=== PATIENT | female | born 1930 | race Caucasian/White ===

== ENCOUNTER 2017-07-30 15:08 | Emergency (ER) | payer OTHER ==
[~2017-07-30] VITALS: Ht 165.1 cm; Wt 50.0 kg
[~2017-07-30 15:08] MED LIST: MECL-62 PO; NAPR-22 PO; NAPR250T57 PO
[2017-07-30 15:29] VITALS: BP 164/85; PULSE 99; RESP 16; TEMP 98.8; O2SAT 100
--- NOTE | 2017-07-30 15:48 | PD ---
HPI Chief Complaint: Fall Time Seen by Provider: 15:32 Travel History International Travel<30 days: No Contact w/Intl Traveler<30days: No Traveled to known affect area: No History of Present Illness HPI History of present illness and physical exam are limited secondary to patient being uncooperative and unable to contact family with patient information. 87- year-old female presents via EMS after falling at [employer]; unknown how she fell. Patient has history of Alzheimer's. She lives with her son. The patient is being uncooperative and answering "I don't care" when I ask her questions. She is agitated and doesn't want to be here in the hospital. She wants to leave. She is alert, but not oriented to place or time. The patient will not allow me to do a physical exam. She tells me not to touch her and to hurry up and leave the room. I tried calling her son that she lives with and he is not answering the phone. I did leave a message. I called her son that lives out of state and he has been trying to contact his brother and has been unsuccessful. HPI limited and unable to be obtained. [facility] Past Medical History Medical History: Unable to Obtain Tetanus Vaccination: Unknown Influenza Vaccination: No ?: Not Past Surgical History Surgical History: Unable to Obtain Social History Alcohol Use: No Tobacco Use: No Substance Use: No Allergies-Medications (Allergen,Severity, Reaction): Coded Allergies: levofloxacin (Unverified Allergy, Severe, 07/30/17) ALL ANTIBIOTICS Uncoded Allergies: ALL ANTIBIOTICS (Allergy, Unknown, 05/10/03) Reported Meds & Prescriptions Reported Meds & Active Scripts Active Review of Systems ROS Limitations: Uncooperative, Refused, Hearing Impaired Except as stated in HPI: all other systems reviewed are Neg Physical Exam Exam Limitations: Uncooperative, Refused Narrative Patient refusing physical exam and tells me not to touch her and to get out of the room: Physical exam done by observation. GENERAL: Well-nourished, well-developed elderly, Ethiopian female patient, in no acute distress; [facility] SKIN: Warm and dry. Abrasion noted to left knee. Approximately 1-1/2 cm chin laceration; bleeding controlled. HEAD: Atraumatic. Normocephalic. EYES: Pupils equal and round No scleral icterus. No injection or drainage. ENT: Mucosa pink and moist. Airway patent. NECK: Trachea midline. CARDIOVASCULAR: Regular rate. RESPIRATORY: No accessory muscle use. GASTROINTESTINAL: Rounded. MUSCULOSKELETAL: Left knee with full range of motion; no obvious deformity. Patient ambulating in the room and hallway without difficulty. No obvious deformities. No clubbing. No cyanosis. No edema. NEUROLOGICAL: Awake and alert. Not oriented. Agitated. No obvious cranial nerve deficits. Motor grossly within normal limits. Normal speech. PSYCHIATRIC: Appropriate mood and affect; insight and judgment normal. Data Data Last Documented VS Vital Signs Date Time Temp Pulse Resp B/P (MAP) Pulse Ox O2 Delivery O2 Flow Rate FiO2 07/30/17 15:29 98.8 99 16 164/85 (111) [address] Brain W/O Iv Contrast(Rout) (07/30/17 ) Knee, Complete (4vws) (07/30/17 15:54) Basic Metabolic Panel (Bmp) (07/30/17 16:14) Complete Blood Count With Diff (07/30/17 16:14) Iv Access Insert/Monitor (07/30/17 16:14) Lidocaine 1% Inj (50 Ml) (Xylocaine 1% I (07/30/17 16:15) Haloperidol Inj (Haldol Inj) (07/30/17 17:15) Restraints Non-Violent RAFA.Q3H (07/30/17 17:42) Lorazepam Inj (Ativan Inj) (07/30/17 18:15) Labs Laboratory Tests Test 07/30/17 16:30 White Blood Count 6.8 TH/MM3 Red Blood Count 4.25 MIL/MM3 Hemoglobin 12.1 GM/DL Hematocrit 36.2 % Mean Corpuscular Volume 85.0 FL Mean Corpuscular Hemoglobin 28.4 PG Mean Corpuscular Hemoglobin Concent 33.4 % Red Cell Distribution Width 14.1 % Platelet Count 265 TH/MM3 Mean Platelet Volume 8.4 FL Neutrophils (%) (Auto) 63.7 % Lymphocytes (%) (Auto) 23.7 % Monocytes (%) (Auto) 10.7 % Eosinophils (%) (Auto) 1.3 % Basophils (%) (Auto) 0.6 % Neutrophils # (Auto) 4.3 TH/MM3 Lymphocytes # (Auto) 1.6 TH/MM3 Monocytes # (Auto) 0.7 TH/MM3 Eosinophils # (Auto) 0.1 TH/MM3 Basophils # (Auto) 0.0 TH/MM3 CBC Comment DIFF FINAL Differential Comment Blood Urea Nitrogen 18 MG/DL Creatinine 0.79 MG/DL Random Glucose 87 MG/DL Calcium Level 8.8 MG/DL Sodium Level 141 MEQ/L Potassium Level 3.9 MEQ/L Chloride Level 108 MEQ/L Carbon Dioxide Level 27.0 MEQ/L Anion Gap 6 MEQ/L Estimat Glomerular Filtration Rate 69 ML/MIN MDM Medical Decision Making Medical Screen Exam Complete: Yes Emergency Medical Condition: Yes Medical Record Reviewed: Yes Differential Diagnosis Fall, laceration, abrasion, patellar fracture, medical clearance Narrative Course 87-year-old female presents via EMS after fall. The patient has history of Alzheimer's and history of present illness and physical exam are limited secondary to patient being uncooperative and refusing care. No family at bedside. CT head, CBC, BMP, left knee x-ray ordered. 1706: Head CT concludes: No acute intracranial process. 1709: 2 attempts to get in touch with the son the patient lives with has been unsuccessful. I have left one message and had no return phone call. The nurse has also tried calling twice. I called her other son who lives in [place] and he has had multiple attempts text messaging and calling to get a hold of the son she lives with and he has been unsuccessful also. Her son in [place] has given verbal authorization to continue care as needed and to give medication to calm her down as needed. 1720: Patient is being disruptive and is trying to leave. There is concern of harm to herself. The patient is not competent or oriented to make medical decisions for herself. Dr. Gauthier recommended Haldol 5 mg. Haldol ordered. 1742: Patient continues to be disruptive, not following instructions, and will not stay in her room and keeps trying to leave. Soft restraints ordered. 1757: NILSA Ross on phone with son she lives with and says he will come into the bedside; nurse states the phone disconnected after he said he would come. 1840: Patient's son is at the bedside. CBC and BMP unremarkable. 1900: The son is refusing for the patient's chin laceration to be sutured closed. He is requesting Steri-Strips or glue. Chin laceration cleaned with normal saline. 191: While I was trying to apply Steri-Strips to the patient's chin the son told me to stop doing what I was doing because he wanted antibiotic ointment placed on it before the Steri-Strips were placed. I tried to explain why I was not applying Antibiotic ointment on because it would cause the Steri-Strips not to stick. He told me to stop doing what I was doing and not to continue. He said he would take care of the laceration himself. 192: The son is being disruptive in the hallway and continues to ask people walking by questions. He is asking one of the nurses if he can take his mom and leave. I discussed leaving AMA and he wants to sign papers and leave. AMA : The risks of leaving against medical advice without further evaluation treatment were discussed with the patient. These risks include cardiac dysfunction, cardiac dysrhythmia, possible heart attack, possible stroke or . The patient indicated understanding of these risks and appeared to have the capacity to make this decision. Diagnosis Primary Impression: Left against medical advice Scripts No Active Prescriptions or Reported Meds Disposition: 07 AGAINST MEDICAL ADVICE Amie Carlton [facility] Jul 30, 2017 15:47
[2017-07-30] MEDS ORDERED: LIDOCAINE HCL 1% 50 ML VIAL INFIL ONE (16:15)
--- NOTE | 2017-07-30 17:01 | RADRPT ---
EXAM DATE/TIME: 07/30/2017 16:06 [facility] COMPARISON: CT BRAIN W/O CONTRAST, March 13, 2016, 13:38. INDICATIONS : Head pain due to fall. RADIATION DOSE: 56.35 CTDIvol (mGy) MEDICAL HISTORY : None SURGICAL HISTORY : None. ENCOUNTER: Initial ACUITY: 1 day PAIN SCALE: 3/10 LOCATION: Bilateral cranial TECHNIQUE: Multiple contiguous axial images were obtained of the head. Using automated exposure control and adj ustment of the mA and/or kV according to patient size, radiation dose was kept as low as reasonably a chievable to obtain optimal diagnostic quality images. DICOM format image data is available electro nically for review and comparison. FINDINGS: There is stable symmetric mild cortical atrophy. The ventricles are stable and symmetric. There is pa tchy mild diminished attenuation in periventricular white matter. There is no evidence of intracrania l mass or hemorrhage. There is nothing to suggest acute infarction. The extracranial structures are b enign and intact. CONCLUSION: No acute intracranial findings. Enio Guaman MD on July 30, 2017 at 16:57 Board Certified Radiologist. This report was verified electronically.
[2017-07-30] MEDS ORDERED: HALOPERIDOL LACTATE 5 MG/ML AMP IM ONE (17:15)
[2017-07-30 17:34] LABS: AUTOMATED NEUTROPHIL # 4.3 TH/MM3 (1.8-7.7); BASOPHIL % 0.6 % (0.0-2.0); EOSINOPHIL # 0.1 TH/MM3 (0-0.4); EOSINOPHIL % 1.3 % (0.0-4.0); HEMATOCRIT 36.2 % (35.0-46.0); HEMO FLAGS DIFF FINAL; LYMPH % 23.7 % (9.0-44.0); LYMPHOCYTE # 1.6 TH/MM3 (1.0-4.8); MEAN CORPUSCULAR HEMOGLOBIN 28.4 PG (27.0-34.0); MEAN CORPUSCULAR HGB CONC 33.4 % (32.0-36.0); MONO % 10.7 % (0.0-8.0); NEUT % 63.7 % (16.0-70.0); PLATELET COUNT 265 TH/MM3 (150-450); RED BLOOD COUNT 4.25 MIL/MM3 (4.00-5.30); RED CELL DISTRIBUTION WIDTH 14.1 % (11.6-17.2); WHITE BLOOD COUNT 6.8 TH/MM3 (4.0-11.0)
[2017-07-30 17:48] LABS: POTASSIUM 3.9 MEQ/L (3.5-5.1)
[2017-07-30] MEDS ORDERED: LORazepam 2 MG/ML VIAL IM ONE (18:15)
--- NOTE | 2017-07-30 19:34 | PD ---
Physical Exam Narrative I, Dr. Llanes, have reviewed the advance practice practitioner's documentation and am in agreement, met with the patient face to face, made the diagnosis, and the medical decision making was done by me. *My assessment and Findings: Fall 87yo F with chin laceration after fall today. Pt was a threat to herself and others so initially given haldol 5mg IM. Soft restraints placed but pt still very agitated. Pt was still trying to leave and a threat to herself so ativan 1mg IV was given. Her son was not able to be contacted and pt did not have decision making capacity so needed to give medication for her own safety. Pt's son finally came but was refusing treatment and stating he did not want sutures or steri strips but just antibiotic ointment on open wound. He is signing out AMA. Pt is calm now and is awake. Return precautions given. Data Data Last Documented VS Vital Signs Date Time Temp Pulse Resp B/P (MAP) Pulse Ox O2 Delivery O2 Flow Rate FiO2 07/30/17 15:29 98.8 99 16 164/85 (111) [address] Brain W/O Iv Contrast(Rout) (07/30/17 ) Knee, Complete (4vws) (07/30/17 15:54) Basic Metabolic Panel (Bmp) (07/30/17 16:14) Complete Blood Count With Diff (07/30/17 16:14) Iv Access Insert/Monitor (07/30/17 16:14) Lidocaine 1% Inj (50 Ml) (Xylocaine 1% I (07/30/17 16:15) Haloperidol Inj (Haldol Inj) (07/30/17 17:15) Restraints Non-Violent RAFA.Q3H (07/30/17 17:42) Lorazepam Inj (Ativan Inj) (07/30/17 18:15) Labs Laboratory Tests Test 07/30/17 16:30 White Blood Count 6.8 TH/MM3 Red Blood Count 4.25 MIL/MM3 Hemoglobin 12.1 GM/DL Hematocrit 36.2 % Mean Corpuscular Volume 85.0 FL Mean Corpuscular Hemoglobin 28.4 PG Mean Corpuscular Hemoglobin Concent 33.4 % Red Cell Distribution Width 14.1 % Platelet Count 265 TH/MM3 Mean Platelet Volume 8.4 FL Neutrophils (%) (Auto) 63.7 % Lymphocytes (%) (Auto) 23.7 % Monocytes (%) (Auto) 10.7 % Eosinophils (%) (Auto) 1.3 % Basophils (%) (Auto) 0.6 % Neutrophils # (Auto) 4.3 TH/MM3 Lymphocytes # (Auto) 1.6 TH/MM3 Monocytes # (Auto) 0.7 TH/MM3 Eosinophils # (Auto) 0.1 TH/MM3 Basophils # (Auto) 0.0 TH/MM3 CBC Comment DIFF FINAL Differential Comment Blood Urea Nitrogen 18 MG/DL Creatinine 0.79 MG/DL Random Glucose 87 MG/DL Calcium Level 8.8 MG/DL Sodium Level 141 MEQ/L Potassium Level 3.9 MEQ/L Chloride Level 108 MEQ/L Carbon Dioxide Level 27.0 MEQ/L Anion Gap 6 MEQ/L Estimat Glomerular Filtration Rate 69 ML/MIN MDM Supervised Visit with [facility]: Yes Diagnosis Primary Impression: Fall Qualified Codes: W19.XXXA - Unspecified fall, initial encounter Additional Impressions: Chin laceration Qualified Codes: S01.81XA - Laceration without foreign body of other part of head, initial encounter Abrasion of left knee Qualified Codes: S80.212A - Abrasion, left knee, initial encounter Referrals: Primary Care Physician Patient Instructions: General Instructions, Abrasion (ED), Fall Prevention (ED) , Steristrips (ED), Facial Laceration (ED) Additional Instruction: Keep area clean and dry Antibiotic ointment as directed and as needed for wound care Tylenol as directed and as needed for pain Follow-up with primary care provider Return to the emergency department immediately with worsening of symptoms Med/Other Pt SpecificInfo: No Change to Meds Scripts No Active Prescriptions or Reported Meds Disposition: 07 AGAINST MEDICAL ADVICE Condition: Stable Charmaine Llanes DO Jul 30, 2017 19:34
--- NOTE | 2017-07-30 19:41 | RADRPT ---
EXAM DATE/TIME: 07/30/2017 19:04 [facility] COMPARISON: No previous studies available for comparison. INDICATIONS : Left knee abrasion status post fall. MEDICAL HISTORY : Unobtainable. SURGICAL HISTORY : Unobtainable. ENCOUNTER: Initial ACUITY: 1 day PAIN SCORE: Non-responsive. LOCATION: Left Knee FINDINGS: Four view examination of the left knee demonstrates no evidence of fracture or dislocation. Bony min eralization is normal. The articular surfaces are intact. The suprapatellar soft tissues have a nor mal configuration. 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 CONCLUSION: 1. 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 2. Otherwise negative with no acute fracture, significant degenerative changes or effusion. Scottie Lacy MD on July 30, 2017 at 19:38 Board Certified Radiologist. This report was verified electronically.
== END 2017-07-30 19:50 | disposition left against medical advice (07) ==
LOC: NEPD 15:08
DX: S01.81XA Laceration without foreign body of other part of head, initial encounter (principal); S80.212A Abrasion, left knee, initial encounter; G30.9 Alzheimer's disease, unspecified; F02.80 Dementia in other diseases classified elsewhere, unspecified severity, without behavioral disturbance, psychotic disturbance, mood disturbance, and anxiety; M11.262 Other chondrocalcinosis, left knee; W19.XXXA Unspecified fall, initial encounter; Y92.512 Supermarket, store or market as the place of occurrence of the external cause; Z88.8 Allergy status to other drugs, medicaments and biological substances
CPT/HCPCS: 70450; 73564; 80048; 85025; 96372; 99285; J1630; J2060